=== PATIENT | female | born 1940 | race Caucasian/White ===

== ENCOUNTER 2016-08-30 14:18 | Inpatient (IN) | payer MEDICARE, BC ==
[~2016-08-30] VITALS: Ht 152.4 cm; Wt 53.1 kg
[2016-08-30] MEDS ORDERED: SIMV5TAB6 PO (14:36)
[2016-08-30] MEDS ORDERED: EZET10TA PO (14:36)
[2016-08-30] MEDS ORDERED: ASPI81TA2 PO (14:36)
[2016-08-30] MEDS ORDERED: ATEN25TA PO (14:36)
[2016-08-30] MEDS ORDERED: LEVO125T8 PO (14:36)
[2016-08-30] MEDS ORDERED: ACET-868 PO (14:36)
[2016-08-30] MEDS ORDERED: QUET25TA PO (14:36)
[2016-08-30 14:59] LABS: BASOPHILS # (AUTO) 0.1 /CMM (0.0-0.2); DIFF TOTAL % 100 %; EOSINOPHILS # (AUTO) 0.2 /CMM (0.0-0.7); EOSINOPHILS % (AUTO) 2.9 % (0.0-6.0); HEMATOCRIT 42 % (33-45); HEMOGLOBIN 14.1 g/dL (11.5-14.8); LYMPHOCYTES # (AUTO) 1.8 /CMM (0.8-4.8); LYMPHOCYTES % (AUTO) 29.6 % (20.0-44.0); MEAN CORPUSCULAR HEMOGLOBIN 31 PG (26.0-33.0); MEAN CORPUSCULAR HGB CONC 34 g/dl (31.0-36.0); MEAN CORPUSCULAR VOLUME 93 fL (82-100); MONOCYTES # (AUTO) 0.4 /CMM (0.1-1.30); MONOCYTES % (AUTO) 6.1 % (2.0-12.0); NEUTROPHILS # (AUTO) 3.7 /CMM (1.8-8.9); NEUTROPHILS % (AUTO) 60.4 % (43.0-81.0); PLATELET COUNT (AUTO) 170 /CMM (150-450); RED BLOOD CELL COUNT(AUTO) 4.53 MIL/uL (4.0-5.2); WHITE BLOOD COUNT (AUTO) 6.2 K/uL (4.3-11.0)
[2016-08-30 15:01] LABS: ADD UA MICROSCOPIC NO; KETONES,URINE Negative (NEGATIVE); LEUKOCYTE ESTERASE ,URINE Negative (NEGATIVE); PH,URINE 5.5 (5.0-8.0)
[2016-08-30 15:06] LABS: ANION GAP 16 (5-14); CARBON DIOXIDE 23 mmol/L (21-32); CHLORIDE 106 mmol/L (98-107); CREATININE 0.8 mg/dL (0.6-1.3); GLUCOSE 97 mg/dL (74-106); POTASSIUM 4.1 mmol/L (3.5-5.1); SODIUM SERUM 141 mmol/L (136-145); UREA NITROGEN, BLOOD 20 mg/dL (7-18)
[2016-08-30 15:16] LABS: ACETAMINOPHEN 0 ug/ml (10-30); SALICYLATE 0.5 mg/dL (2.8-20.0)
[2016-08-30 15:45] VITALS: BP 166/59
[2016-08-30 16:04] LABS: CANNABINOID, URINE NEGATIVE (NEGATIVE); PHENCYCLIDINE SCREEN,URINE NEGATIVE (NEGATIVE)
[2016-08-30] MEDS ORDERED: LORAZEPAM 0.5 MG TABLET PO PRN (17:00)
[2016-08-30] MEDS ORDERED: MAG HYDROX/AL HYDROX/SIMETH 30 ML UDC PO PRN (17:00)
[2016-08-30] MEDS ORDERED: ACETAMINOPHEN 325 MG TABLET PO PRN (17:00)
[2016-08-30] MEDS: SERTRALINE HCL 25 MG TABLET PO SCH (18:29)
[2016-08-30 19:35] VITALS: BP 142/79
[2016-08-30] MEDS ORDERED: QUETIAPINE FUMARATE 25 MG TABLET PO SCH (22:00)
[2016-08-31 07:45] LABS: ALBUMIN 3.4 g/dL (3.4-5.0); BILIRUBIN,TOTAL 0.7 mg/dL (0.2-1.0); CALCIUM, SERUM 8.7 mg/dL (8.5-10.1); CREATININE 0.7 mg/dL (0.6-1.3); POTASSIUM 3.7 mmol/L (3.5-5.1); TOTAL PROTEIN, SERUM 6.2 g/dL (6.4-8.2)
[2016-08-31 08:00] VITALS: BP 128/64
[2016-08-31] MEDS: SIMVASTATIN 10 MG TABLET PO SCH (08:14)
[2016-08-31] MEDS: EZETIMIBE 10 MG TABLET PO SCH (08:14)
[2016-08-31] MEDS: ASPIRIN 81 MG TAB.CHEW PO SCH (08:14)
[2016-08-31] MEDS: LEVOTHYROXINE SODIUM 125 MCG TABLET PO SCH (08:14)
[2016-08-31] MEDS: SERTRALINE HCL 25 MG TABLET PO SCH (08:14)
[2016-08-31] MEDS: ATENOLOL 25 MG TABLET PO SCH ×2 (09:00→16:16)
[2016-08-31 16:00] VITALS: BP 133/67
[2016-08-31] MEDS: QUETIAPINE FUMARATE 25 MG TABLET PO SCH (16:14)
[2016-08-31 19:56] VITALS: BP 144/79
[2016-09-01] MEDS: SIMVASTATIN 10 MG TABLET PO SCH (08:20)
[2016-09-01] MEDS: EZETIMIBE 10 MG TABLET PO SCH (08:20)
[2016-09-01] MEDS: SERTRALINE HCL 25 MG TABLET PO SCH (08:20)
[2016-09-01] MEDS: LEVOTHYROXINE SODIUM 125 MCG TABLET PO SCH (08:20)
[2016-09-01] MEDS: QUETIAPINE FUMARATE 25 MG TABLET PO SCH ×2 (08:20→16:35)
[2016-09-01] MEDS: ASPIRIN 81 MG TAB.CHEW PO SCH (08:20)
[2016-09-01] MEDS: ATENOLOL 25 MG TABLET PO SCH ×2 (08:27→16:35)
[2016-09-01 09:42] VITALS: BP 127/87
[2016-09-01 16:21] VITALS: BP 123/55
[2016-09-01 20:23] VITALS: BP 121/54
[2016-09-02 08:11] VITALS: BP 127/61
[2016-09-02] MEDS: ASPIRIN 81 MG TAB.CHEW PO SCH (08:18)
[2016-09-02] MEDS: QUETIAPINE FUMARATE 25 MG TABLET PO SCH ×2 (08:18→16:52)
[2016-09-02] MEDS: LEVOTHYROXINE SODIUM 125 MCG TABLET PO SCH (08:18)
[2016-09-02] MEDS: EZETIMIBE 10 MG TABLET PO SCH (08:19)
[2016-09-02] MEDS: ATENOLOL 25 MG TABLET PO SCH ×2 (08:20→16:53)
[2016-09-02] MEDS: SERTRALINE HCL 25 MG TABLET PO SCH (08:20)
[2016-09-02] MEDS: SIMVASTATIN 10 MG TABLET PO SCH (08:20)
[2016-09-02 16:27] VITALS: BP 128/65
[2016-09-02 20:10] VITALS: BP 138/76
[2016-09-02] MEDS: TEMAZEPAM 7.5 MG CAPSULE PO PRN (21:24)
[2016-09-03 08:00] VITALS: BP 121/67
[2016-09-03 08:44] LABS: CHOLESTEROL 147 mg/dL (<200); HDL CHOLESTEROL 58 mg/dL (40-60); LDL 73 mg/dL (0-99); TRIGLYCERIDES 83 mg/dL (30-150)
[2016-09-03] MEDS: LEVOTHYROXINE SODIUM 125 MCG TABLET PO SCH (08:45)
[2016-09-03] MEDS: QUETIAPINE FUMARATE 25 MG TABLET PO SCH ×2 (08:46→17:23)
[2016-09-03] MEDS: EZETIMIBE 10 MG TABLET PO SCH (08:46)
[2016-09-03] MEDS: SIMVASTATIN 10 MG TABLET PO SCH (08:46)
[2016-09-03] MEDS: ASPIRIN 81 MG TAB.CHEW PO SCH (08:46)
[2016-09-03] MEDS: ATENOLOL 25 MG TABLET PO SCH ×2 (08:46→17:00)
[2016-09-03] MEDS: SERTRALINE HCL 25 MG TABLET PO SCH (08:46)
[2016-09-03 16:00] VITALS: BP 117/54
[2016-09-03 20:00] VITALS: BP 133/68
[2016-09-03] MEDS: TEMAZEPAM 7.5 MG CAPSULE PO PRN (22:00)
[2016-09-04 08:00] VITALS: BP 121/63
[2016-09-04] MEDS: EZETIMIBE 10 MG TABLET PO SCH (08:23)
[2016-09-04] MEDS: LEVOTHYROXINE SODIUM 125 MCG TABLET PO SCH (08:23)
[2016-09-04] MEDS: SERTRALINE HCL 25 MG TABLET PO SCH (08:24)
[2016-09-04] MEDS: ASPIRIN 81 MG TAB.CHEW PO SCH (08:25)
[2016-09-04] MEDS: QUETIAPINE FUMARATE 25 MG TABLET PO SCH ×2 (08:25→16:46)
[2016-09-04] MEDS: SIMVASTATIN 10 MG TABLET PO SCH (08:25)
[2016-09-04] MEDS: ATENOLOL 25 MG TABLET PO SCH ×2 (08:29→16:46)
[2016-09-04 16:00] VITALS: BP 140/68
[2016-09-04 20:00] VITALS: BP 136/64
[2016-09-04] MEDS: DONEPEZIL 5 MG TABLET PO SCH (21:13)
[2016-09-05] MEDS: LEVOTHYROXINE SODIUM 125 MCG TABLET PO SCH (07:30)
[2016-09-05 08:00] VITALS: BP 120/60
[2016-09-05] MEDS: QUETIAPINE FUMARATE 25 MG TABLET PO SCH ×2 (09:00→17:00)
[2016-09-05] MEDS: SIMVASTATIN 10 MG TABLET PO SCH (09:00)
[2016-09-05] MEDS: ATENOLOL 25 MG TABLET PO SCH ×2 (09:00→17:00)
[2016-09-05] MEDS: ASPIRIN 81 MG TAB.CHEW PO SCH (09:00)
[2016-09-05] MEDS: EZETIMIBE 10 MG TABLET PO SCH (09:00)
[2016-09-05] MEDS: SERTRALINE HCL 25 MG TABLET PO SCH (09:00)
[2016-09-05 16:05] VITALS: BP 147/76
[2016-09-05 19:52] VITALS: BP 137/62
[2016-09-05] MEDS: DONEPEZIL 5 MG TABLET PO SCH (21:44)
[2016-09-06] MEDS: LEVOTHYROXINE SODIUM 125 MCG TABLET PO SCH (07:30)
[2016-09-06 08:00] VITALS: BP 119/57
[2016-09-06] MEDS: ASPIRIN 81 MG TAB.CHEW PO SCH (09:00)
[2016-09-06] MEDS: QUETIAPINE FUMARATE 25 MG TABLET PO SCH ×2 (09:00→16:16)
[2016-09-06] MEDS: ATENOLOL 25 MG TABLET PO SCH ×2 (09:00→16:18)
[2016-09-06] MEDS: SIMVASTATIN 10 MG TABLET PO SCH (09:00)
[2016-09-06] MEDS: SERTRALINE HCL 25 MG TABLET PO SCH (09:00)
[2016-09-06] MEDS: EZETIMIBE 10 MG TABLET PO SCH (09:00)
[2016-09-06 16:00] VITALS: BP 148/83
[2016-09-06 20:08] VITALS: BP 166/70
[2016-09-06] MEDS: DONEPEZIL 5 MG TABLET PO SCH (21:35)
[2016-09-07] MEDS: LEVOTHYROXINE SODIUM 125 MCG TABLET PO SCH (07:30)
[2016-09-07 08:21] VITALS: BP 116/55
[2016-09-07] MEDS: QUETIAPINE FUMARATE 25 MG TABLET PO SCH ×2 (09:00→16:28)
[2016-09-07] MEDS: EZETIMIBE 10 MG TABLET PO SCH (09:00)
[2016-09-07] MEDS: SERTRALINE HCL 25 MG TABLET PO SCH (09:00)
[2016-09-07] MEDS: ASPIRIN 81 MG TAB.CHEW PO SCH (09:00)
[2016-09-07] MEDS: ATENOLOL 25 MG TABLET PO SCH ×2 (09:00→16:28)
[2016-09-07] MEDS: SIMVASTATIN 10 MG TABLET PO SCH (09:00)
[2016-09-07 16:41] VITALS: BP 140/67
[2016-09-07 20:02] VITALS: BP 129/71
[2016-09-07] MEDS: DONEPEZIL 5 MG TABLET PO SCH (21:52)
[2016-09-08] MEDS: LEVOTHYROXINE SODIUM 125 MCG TABLET PO SCH (08:09)
[2016-09-08] MEDS: ASPIRIN 81 MG TAB.CHEW PO SCH (08:09)
[2016-09-08] MEDS: ATENOLOL 25 MG TABLET PO SCH ×2 (08:10→17:00)
[2016-09-08] MEDS: QUETIAPINE FUMARATE 25 MG TABLET PO SCH ×2 (08:11→17:00)
[2016-09-08] MEDS: SIMVASTATIN 10 MG TABLET PO SCH (08:11)
[2016-09-08] MEDS: SERTRALINE HCL 25 MG TABLET PO SCH (08:11)
[2016-09-08] MEDS: EZETIMIBE 10 MG TABLET PO SCH (08:11)
[2016-09-08 08:20] VITALS: BP 118/47
[2016-09-08 16:22] VITALS: BP 115/53
[2016-09-08 20:11] VITALS: BP 139/59
[2016-09-08] MEDS: DONEPEZIL 5 MG TABLET PO SCH (22:09)
[2016-09-09 08:00] VITALS: BP 127/60
[2016-09-09] MEDS: LEVOTHYROXINE SODIUM 125 MCG TABLET PO SCH (08:19)
[2016-09-09] MEDS: EZETIMIBE 10 MG TABLET PO SCH (09:00)
[2016-09-09] MEDS: SERTRALINE HCL 25 MG TABLET PO SCH (09:01)
[2016-09-09] MEDS: ASPIRIN 81 MG TAB.CHEW PO SCH (09:01)
[2016-09-09] MEDS: QUETIAPINE FUMARATE 25 MG TABLET PO SCH ×2 (09:02→16:45)
[2016-09-09] MEDS: SIMVASTATIN 10 MG TABLET PO SCH (09:13)
[2016-09-09 16:00] VITALS: BP 133/60
[2016-09-09 20:17] VITALS: BP 139/67
[2016-09-09] MEDS: DONEPEZIL 5 MG TABLET PO SCH (21:05)
[2016-09-09] MEDS: TEMAZEPAM 7.5 MG CAPSULE PO PRN (21:06)
[2016-09-10 08:00] VITALS: BP 108/68
[2016-09-10] MEDS: LEVOTHYROXINE SODIUM 125 MCG TABLET PO SCH (08:33)
[2016-09-10] MEDS: ASPIRIN 81 MG TAB.CHEW PO SCH (08:34)
[2016-09-10] MEDS: SIMVASTATIN 10 MG TABLET PO SCH (08:34)
[2016-09-10] MEDS: EZETIMIBE 10 MG TABLET PO SCH (08:34)
[2016-09-10] MEDS: SERTRALINE HCL 25 MG TABLET PO SCH (08:35)
[2016-09-10] MEDS: MEMANTINE HCL 5 MG TABLET PO SCH (08:35)
[2016-09-10] MEDS: QUETIAPINE FUMARATE 25 MG TABLET PO SCH ×3 (08:36→16:17)
[2016-09-10 16:05] VITALS: BP 123/70
[2016-09-10 20:00] VITALS: BP 146/62
[2016-09-10] MEDS: DONEPEZIL 5 MG TABLET PO SCH (21:40)
[2016-09-10] MEDS: TEMAZEPAM 7.5 MG CAPSULE PO PRN (21:40)
[2016-09-11 08:00] VITALS: BP 109/61
[2016-09-11] MEDS: SIMVASTATIN 10 MG TABLET PO SCH (09:00)
[2016-09-11] MEDS: QUETIAPINE FUMARATE 25 MG TABLET PO SCH ×3 (09:01→17:08)
[2016-09-11] MEDS: LEVOTHYROXINE SODIUM 125 MCG TABLET PO SCH (09:01)
[2016-09-11] MEDS: SERTRALINE HCL 25 MG TABLET PO SCH (09:01)
[2016-09-11] MEDS: MEMANTINE HCL 5 MG TABLET PO SCH (09:01)
[2016-09-11] MEDS: EZETIMIBE 10 MG TABLET PO SCH (09:01)
[2016-09-11] MEDS: ASPIRIN 81 MG TAB.CHEW PO SCH (09:01)
[2016-09-11 16:00] VITALS: BP 125/60
[2016-09-11 20:35] VITALS: BP 142/68
[2016-09-11] MEDS: DONEPEZIL 5 MG TABLET PO SCH (21:52)
[2016-09-11] MEDS: TEMAZEPAM 7.5 MG CAPSULE PO PRN (21:53)
[2016-09-12 08:00] VITALS: BP 122/56
[2016-09-12] MEDS: LEVOTHYROXINE SODIUM 125 MCG TABLET PO SCH (08:17)
[2016-09-12] MEDS: SERTRALINE HCL 25 MG TABLET PO SCH (08:18)
[2016-09-12] MEDS: MEMANTINE HCL 5 MG TABLET PO SCH (08:18)
[2016-09-12] MEDS: EZETIMIBE 10 MG TABLET PO SCH (08:18)
[2016-09-12] MEDS: ASPIRIN 81 MG TAB.CHEW PO SCH (08:18)
[2016-09-12] MEDS: QUETIAPINE FUMARATE 25 MG TABLET PO SCH ×3 (08:18→16:40)
[2016-09-12] MEDS: SIMVASTATIN 10 MG TABLET PO SCH (08:19)
[2016-09-12 16:00] VITALS: BP 138/67
[2016-09-12 20:00] VITALS: BP 117/75
[2016-09-12] MEDS: TEMAZEPAM 7.5 MG CAPSULE PO PRN (22:19)
[2016-09-12] MEDS: DONEPEZIL 5 MG TABLET PO SCH (22:19)
[2016-09-13 08:00] VITALS: BP 123/53
[2016-09-13] MEDS: QUETIAPINE FUMARATE 25 MG TABLET PO SCH ×2 (09:11→17:52)
[2016-09-13] MEDS: LEVOTHYROXINE SODIUM 125 MCG TABLET PO SCH (09:11)
[2016-09-13] MEDS: SERTRALINE HCL 25 MG TABLET PO SCH (09:11)
[2016-09-13] MEDS: EZETIMIBE 10 MG TABLET PO SCH (09:11)
[2016-09-13] MEDS: ASPIRIN 81 MG TAB.CHEW PO SCH (09:11)
[2016-09-13] MEDS: SIMVASTATIN 10 MG TABLET PO SCH (09:11)
[2016-09-13] MEDS: MEMANTINE HCL 5 MG TABLET PO SCH (09:12)
[2016-09-13 16:11] VITALS: BP 116/60
[2016-09-13 19:59] VITALS: BP 121/66
[2016-09-13] MEDS: TEMAZEPAM 7.5 MG CAPSULE PO PRN (22:07)
[2016-09-13] MEDS: DONEPEZIL 5 MG TABLET PO SCH (22:07)
[2016-09-14 08:00] VITALS: BP 100/54
[2016-09-14] MEDS: SERTRALINE HCL 25 MG TABLET PO SCH ×2 (08:37→09:14)
[2016-09-14] MEDS: ASPIRIN 81 MG TAB.CHEW PO SCH (08:37)
[2016-09-14] MEDS: EZETIMIBE 10 MG TABLET PO SCH (08:37)
[2016-09-14] MEDS: MEMANTINE HCL 5 MG TABLET PO SCH (08:38)
[2016-09-14] MEDS: QUETIAPINE FUMARATE 25 MG TABLET PO SCH ×3 (08:38→17:56)
[2016-09-14] MEDS: LEVOTHYROXINE SODIUM 125 MCG TABLET PO SCH (08:38)
[2016-09-14] MEDS: SIMVASTATIN 10 MG TABLET PO SCH (08:38)
[2016-09-14 16:00] VITALS: BP 115/64
[2016-09-14 19:58] VITALS: BP 129/69
[2016-09-14] MEDS: DONEPEZIL 5 MG TABLET PO SCH (21:40)
[2016-09-14] MEDS: TEMAZEPAM 7.5 MG CAPSULE PO PRN (21:40)
[2016-09-15 08:00] VITALS: BP 118/49
[2016-09-15] MEDS: LEVOTHYROXINE SODIUM 125 MCG TABLET PO SCH (11:19)
[2016-09-15] MEDS: SERTRALINE HCL 25 MG TABLET PO SCH (11:19)
[2016-09-15] MEDS: QUETIAPINE FUMARATE 25 MG TABLET PO SCH ×2 (11:19→16:55)
[2016-09-15] MEDS: MEMANTINE HCL 5 MG TABLET PO SCH (11:20)
[2016-09-15] MEDS: SIMVASTATIN 10 MG TABLET PO SCH (11:20)
[2016-09-15] MEDS: EZETIMIBE 10 MG TABLET PO SCH (11:20)
[2016-09-15] MEDS: ASPIRIN 81 MG TAB.CHEW PO SCH (11:20)
[2016-09-15 16:00] VITALS: BP 134/71
[2016-09-15] MEDS: MAGNESIUM HYDROXIDE 30 ML UDC PO PRN (16:55)
[2016-09-15 20:00] VITALS: BP 134/76
[2016-09-15] MEDS: TEMAZEPAM 7.5 MG CAPSULE PO PRN (21:48)
[2016-09-15] MEDS: DONEPEZIL 5 MG TABLET PO SCH (21:48)
[2016-09-16 08:00] VITALS: BP 115/57
[2016-09-16] MEDS: SERTRALINE HCL 25 MG TABLET PO SCH ×2 (09:00→10:18)
[2016-09-16] MEDS: QUETIAPINE FUMARATE 25 MG TABLET PO SCH ×4 (09:00→18:11)
[2016-09-16] MEDS: EZETIMIBE 10 MG TABLET PO SCH ×2 (09:00→10:19)
[2016-09-16] MEDS: ASPIRIN 81 MG TAB.CHEW PO SCH (10:18)
[2016-09-16] MEDS: SIMVASTATIN 10 MG TABLET PO SCH (10:19)
[2016-09-16] MEDS: MEMANTINE HCL 5 MG TABLET PO SCH (10:19)
[2016-09-16] MEDS: LEVOTHYROXINE SODIUM 125 MCG TABLET PO SCH (10:21)
[2016-09-16 16:42] VITALS: BP 139/58
[2016-09-16 20:01] VITALS: BP 140/65
[2016-09-16] MEDS: MAGNESIUM HYDROXIDE 30 ML UDC PO PRN (20:47)
[2016-09-16] MEDS: DONEPEZIL 5 MG TABLET PO SCH (21:26)
[2016-09-17 08:00] VITALS: BP 120/74
[2016-09-17] MEDS: LEVOTHYROXINE SODIUM 125 MCG TABLET PO SCH (08:30)
[2016-09-17] MEDS: QUETIAPINE FUMARATE 25 MG TABLET PO SCH ×3 (08:30→16:19)
[2016-09-17] MEDS: SERTRALINE HCL 25 MG TABLET PO SCH (08:30)
[2016-09-17] MEDS: SIMVASTATIN 10 MG TABLET PO SCH (08:30)
[2016-09-17] MEDS: EZETIMIBE 10 MG TABLET PO SCH (08:30)
[2016-09-17] MEDS: ASPIRIN 81 MG TAB.CHEW PO SCH (08:30)
[2016-09-17] MEDS: MEMANTINE HCL 5 MG TABLET PO SCH (08:30)
[2016-09-17 16:00] VITALS: BP 102/54
[2016-09-17] MEDS: DONEPEZIL 5 MG TABLET PO SCH (21:49)
[2016-09-18 08:00] VITALS: BP 112/58
[2016-09-18] MEDS: LEVOTHYROXINE SODIUM 125 MCG TABLET PO SCH (08:04)
[2016-09-18] MEDS: ASPIRIN 81 MG TAB.CHEW PO SCH (08:04)
[2016-09-18] MEDS: QUETIAPINE FUMARATE 25 MG TABLET PO SCH (08:05)
[2016-09-18] MEDS: SIMVASTATIN 10 MG TABLET PO SCH (08:05)
[2016-09-18] MEDS: MEMANTINE HCL 5 MG TABLET PO SCH (08:05)
[2016-09-18] MEDS: EZETIMIBE 10 MG TABLET PO SCH (08:05)
[2016-09-18] MEDS: SERTRALINE HCL 25 MG TABLET PO SCH (08:05)
== END 2016-09-18 11:25 | DRG 885 ==
LOC: ER 14:20 → GPS 15:48
PROVIDERS: ADMIT Psychiatry & Neurology Psychosomatic Medicine
DX: F29 Unspecified psychosis not due to a substance or known physiological condition (principal); F32.3 Major depressive disorder, single episode, severe with psychotic features; F03.91 Unspecified dementia, unspecified severity, with behavioral disturbance; E03.9 Hypothyroidism, unspecified; E78.5 Hyperlipidemia, unspecified; Z73.6 Limitation of activities due to disability; I10 Essential (primary) hypertension
CPT/HCPCS: 36415; 80048-TC; 80053-TC; 80061-TC; 81000-TC; 84443-TC; 85025-TC; 87081-TC; A4606; G0434; G6038-TC; G6039-TC; G6040-TC; Z7610